=== PATIENT | male | born 1950 | race African-American/Black ===

== ENCOUNTER 2017-03-11 10:30 | Emergency (ER) | payer OTHER ==
[~2017-03-11] VITALS: Ht 190.5 cm; Wt 127.0 kg
[~2017-03-11 10:30] MED LIST: NKM; NORVASC10 MG ORAL
[2017-03-11 11:00] VITALS: BP 241/140
[2017-03-11] MEDS ORDERED: DEBROX15 M1 BOTH EARS (11:56)
[2017-03-11 12:38] VITALS: BP 220/144
[2017-03-11 12:45] VITALS: BP 220/144
--- NOTE | 2017-03-11 13:54 | Emergency Room Report ---
History of Present Illness General Chief Complaint: Earache Source: Patient, Medical Record Present Illness HPI [id number] [employer] patient with decreased hearing left ear for 2 weeks Uses Qtips to clean ears Denies pain to left ear, fever/chills Hearing better when "pull my earlobe back" Allergies: Coded Allergies: No Known Allergies (Unverified , 08/31/13) Patient History Past Medical History: HTN Past Surgical History: none Pertinent Family History: none Social History: Denies: alcohol use, drug use, smoking Immunizations: UTD Reviewed Nursing Documentation: PMH: Agreed, PSxH: Agreed Nursing Documentation-PMH Past Medical History: No History, Except For Hx Hypertension: Yes Review of Systems All Other Systems: negative except mentioned in HPI Physical Exam Vital Signs Date Time Temp Pulse Resp B/P Pulse Ox O2 Delivery O2 Flow Rate FiO2 03/11/17 10:36 97.9 78 14 241/140 96 Room Air Sp02 EP Interpretation: reviewed, normal General Appearance: normal inspection, well appearing, no apparent distress, alert Head: atraumatic ENT: normal ENT inspection, normal pharynx, no angioedema, other - Bilateral ears L>R blocked by impacted cerumen. 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 No perforated TM Dc with Debrox Prn Last Vital Signs Date Time Temp Pulse Resp B/P Pulse Ox O2 Delivery O2 Flow Rate FiO2 03/11/17 12:45 97.9 85 16 220/144 96 Room Air Status: improved Disposition: HOME, SELF-CARE Condition: Improved Scripts Carbamide Peroxide (DEBROX) 15 Ml Drops 5 DROP BOTH EARS TWICE A DAY for 4 Days, ML 0 Refills Prov: PAULINA URIBE M.D. 03/11/17 Referrals: NON PHYSICIAN (PCP) Patient Instructions: Cerumen Impaction Additional Instructions: - STOP using qtips to clean ears - Use debrox to clean ears as needed PAULINA URIBE M.D. Mar 11, 2017 13:53
== END 2017-03-11 12:46 | disposition home or self-care (01) ==
LOC: EMR 11:12
DX: H61.23 Impacted cerumen, bilateral (principal); H91.92 Unspecified hearing loss, left ear; I10 Essential (primary) hypertension
CPT/HCPCS: 99283